=== PATIENT | female | born 1955 | race Two or more races ===

== ENCOUNTER → 2024-07-25 06:22 | Day surgery (SDC) | payer OTHER, SELFPAY ==
[2024-07-25 08:13] LABS: Glucose - Point of Care 117 mg/dl (70-99)
== END ==
LOC: GI 06:22
PROVIDERS: ATTENDING PHYSICIAN Internal Medicine
DX: R10.13 Epigastric pain (principal); K44.9 Diaphragmatic hernia without obstruction or gangrene; K21.00 Gastro-esophageal reflux disease with esophagitis, without bleeding; K31.89 Other diseases of stomach and duodenum; Z98.890 Other specified postprocedural states; Z13.810 Encounter for screening for upper gastrointestinal disorder; K29.50 Unspecified chronic gastritis without bleeding
CPT/HCPCS: 43239; 88305; 82962; 88342

== ENCOUNTER 2025-10-01 06:28 | Day surgery (SDC) | payer OTHER, SELFPAY ==
[2025-10-01 08:09] LABS: Glucose - Point of Care 99 mg/dl (70-99)
== END 2025-10-01 09:54 | disposition home or self-care (01) ==
LOC: GI 06:28
PROVIDERS: ATTENDING PHYSICIAN Internal Medicine
DX: Z12.11 Encounter for screening for malignant neoplasm of colon (principal); D12.0 Benign neoplasm of cecum; D12.2 Benign neoplasm of ascending colon; K63.5 Polyp of colon; Z86.0101 Personal history of adenomatous and serrated colon polyps; K64.9 Unspecified hemorrhoids; K22.70 Barrett's esophagus without dysplasia; K29.70 Gastritis, unspecified, without bleeding; K22.89 Other specified disease of esophagus; R93.3 Abnormal findings on diagnostic imaging of other parts of digestive tract; R14.0 Abdominal distension (gaseous); Z98.890 Other specified postprocedural states
CPT/HCPCS: 45385; 45380; 43239; 82962; 88305; 88342